=== PATIENT | male | born 1985 | race Caucasian/White ===

== ENCOUNTER 2022-12-15 05:55 | Day surgery (SDC) | payer SELFPAY ==
[~2022-12-15 05:55] MED LIST: Dextrose 5%-0.45% NaCl 1,000 ML IV SCH; Sodium Chloride 0.9% 10 ML Syringe FLUSH PRN; Sodium Chloride 0.9% 10 ML Syringe FLUSH SCH
[2022-12-15] MEDS ORDERED: Dextrose 5%-0.45% NaCl 1,000 ML IV SCH (06:15)
[2022-12-15] MEDS ORDERED: fentaNYL 100 MCG/2 ML SDV ONE (06:19)
[2022-12-15] MEDS ORDERED: Midazolam 1 MG/ML 2 ML SDV ONE (06:19)
[2022-12-15] MEDS ORDERED: fentaNYL 100 MCG/2 ML SDV IV ONE ×2 (06:31→06:32)
[2022-12-15] MEDS ORDERED: Midazolam 1 MG/ML 2 ML SDV IV ONE ×2 (06:32→06:33)
== END 2022-12-15 08:38 | disposition home or self-care (01) ==
LOC: DL.ENDO 05:55
PROVIDERS: ATTEND Internal Medicine Gastroenterology
DX: K29.50 Unspecified chronic gastritis without bleeding (principal); E66.09 Other obesity due to excess calories; G40.909 Epilepsy, unspecified, not intractable, without status epilepticus; Z87.891 Personal history of nicotine dependence; Z86.16 Personal history of COVID-19; Z68.30 Body mass index [BMI] 30.0-30.9, adult; Z79.899 Other long term (current) drug therapy
CPT/HCPCS: 43239; 87077; J2250; J3010; J7042